=== PATIENT | male | born 1940 | race Caucasian/White ===

== ENCOUNTER 2020-06-11 12:35 | Emergency (ER) | payer MEDICARE, SELFPAY ==
--- NOTE | ~2020-06-11 | XR_ITS ---
EXAMINATION: XR chest 2V DATE: 06/11/2020 13:42 INDICATION: Posterior chest pain. TECHNIQUE: Frontal and lateral views of the chest were obtained. COMPARISON: None. FINDINGS: There is mild elevation of right hemidiaphragm. There is mild atelectasis at left lung base . No pleural effusion or pneumothorax. The heart size is normal. There are surgical clips in the abdo men. Pectus excavatum is noted. There is a mild compression fracture of mid thoracic spine. IMPRESSION: 1. Age indeterminant mild compression fracture of mid thoracic spine. 2. Mild atelectasis at left lung base. Reviewed, dictated and finalized at location A.
[2020-06-11 12:40] VITALS: BP 182/95; PULSE 79; RESP 14; TEMP 36.7; O2SAT 97
--- NOTE | 2020-06-11 12:59 | ECG_ITS ---
Measurements Intervals [place] Rate: 78 P: 73 PA: 226 QRS: -61 QRSD: 118 T: 74 QT: 373 QTc: 425 Interpretive Statements SINUS RHYTHM WITH FIRST DEGREE AV BLOCK INCOMPLETE RIGHT BUNDLE BRANCH BLOCK LEFT ANTERIOR FASCICULAR BLOCK VOLTAGE CRITERIA FOR LVH CONSIDER ANTERIOR INFARCT, AGE INDETERMINATE BASELINE WANDER- I, AVL ABNORMAL ECG Electronically Signed On 06-11-2020 13:05:22 CDT by Patrice Zamorano D.O.
[2020-06-11 13:22] LABS: Hematocrit 47.5 % (37.0-46.0); Hemoglobin 16.1 g/dL (12.4-15.3); Immature Platelet Fraction Pct 3.6 % (1.0-7.0); Mean Corpuscular HGB Conc 33.9 g/dL (32.0-36.0); Mean Corpuscular Volume 88.5 fL (78.0-102.0); Mean Platelet Volume 10.4 fl (8.7-11.0); Platelet Count Result 137 K/mm3 (150-420); Red Blood Count 5.37 M/mm3 (4.70-6.10); Red Cell Distribution Width 12.6 % (11.6-14.4)
[2020-06-11] MEDS: KETOROLAC (*BKC) 60 MG/2 ML VIAL IM (13:24)
[2020-06-11 13:46] LABS: Alanine Aminotransferase 31 U/L (16-63); Albumin Level 3.7 g/dL (3.4-5.0); Alkaline Phosphatase 58 U/L (46-116); Anion Gap 5 mmol/L (8-16); Aspartate Amino Transferase 20 U/L (15-37); Bilirubin,Total 1.3 mg/dL (0.00-1.00); Blood Urea Nitrogen 15 mg/dL (7-18); Calcium 8.9 mg/dL (8.5-10.1); Carbon Dioxide 29 mmol/L (21-32); Chloride 103 mmol/L (98-108); Estimated CRCL calculation 69 ml/min; Estimated Glomerular Filt Rate > 60; Glucose 172 mg/dL (70-99); Osmolality Calculated 288 mOsm/kg (285-295); Potassium 4.3 mmol/L (3.5-5.1); Sodium 137 mmol/L (136-145); Total Protein 7.5 g/dL (6.4-8.2); Troponin I < 0.02 ng/mL (0.00-0.056)
--- NOTE | 2020-06-11 13:53 | ED.BACK ---
HPI - Back Pain/Injury General Chief Complaint: Back Pain/Injury Stated Complaint: back pain between shoulder blades with chest pains Source: patient and family Mode of arrival: ambulatory History of Present Illness HPI Narrative: This is a 79-year-old gentleman presents with some back pain with radiation into his chest right-sided off and on back pain he rates at about 3/10 he has had this pain for the last 5 weeks has taken some ibuprofen earlier today. Currently there is no shortness of breath no nausea vomiting no abdominal pain no fever chills no diarrhea constipation no dysuria. Patient has a history of diabetes, depression, hypertension. MD elicited complaint: back pain Pertinent past history: prior back pain Onset (ago): week(s) Timing: intermittent Severity: mild Pain scale (0-10): 3 Similar Symptoms Previously: Yes Quality: dull and aching Location: thoracic spine Radiation: none Exacerbating factors: movement Relieving factors: immobilization Related Data Home Medications Medication Instructions Recorded Confirmed insulin NPH and regular human 40 unit SUBCUT BID 06/11/20 06/11/20 [Novolin 70/30 U-100 Insulin] omega 2-[id number]-fish oil [Fish Oil] 1 cap PO DAILY 06/11/20 06/11/20 sertraline [Zoloft] 150 mg PO DAILY 06/11/20 06/11/20 Allergies Allergy/AdvReac Type Severity Reaction Status Date / Time No Known Allergies Allergy Verified 06/11/20 13:19 Review of Systems Review of Systems: All systems reviewed & are unremarkable except as noted in HPI and below PMFSH Past Medical History Medical History Diabetes mellitus HTN (hypertension) Exam Const: General: no acute distress and alert Orientation/consciousness: patient oriented x3 HENMT: Head: normal to inspection Eyes: Conjunctivae: conjunctivae normal Pupils: Equal, round and reactive pupils present EOM: EOMs intact bilaterally Neck: Neck: normal visual inspection Chest: Chest palpation & inspection: normal inspection of the chest Resp: Effort & Inspection: normal respiratory effort Auscultation: clear to auscultation bilaterally Cardio: Rate: regular rate Rhythm: regular rhythm GI: Auscultation: normal bowel sounds Back/Spine/Pelvis: Back: no CVA tenderness Skin: General skin exam: normal color Rashes: no rashes Neuro: General: patient oriented x3 Extrem: General: normal to inspection Psych: Appearance: grossly normal Mental Status: mental status grossly normal Affect: normal affect Attitude: cooperative Thought content: Yes Normal thought content present Course Course Emergency Course: patient resting comfortably pain level is down to 1/10 just mild ache after he received IM Toradol advised patient follow up with primary care for of physician and explain that there was a confer compression fracture in the thoracic spine causing his chronic pain. Vital Signs Vital signs: Vital Signs Temperature 36.7 C 06/11/20 12:40 Pulse Rate 79 06/11/20 12:40 Respiratory Rate 14 06/11/20 12:40 Blood Pressure 182/95 H 06/11/20 12:40 Pulse Oximetry 97 06/11/20 12:40 Temperature 36.7 C 06/11/20 12:40 Pulse Rate 79 06/11/20 12:40 Respiratory Rate 14 06/11/20 12:40 Blood Pressure 182/95 H 06/11/20 12:40 Pulse Oximetry 97 06/11/20 12:40 MDM - Back Pain/Injury Lab Data Result diagrams: 06/11/20 13:15 06/11/20 13:15 Labs: Lab Results 06/11/20 06/11/20 06/11/20 Range/Units 13:15 13:15 13:15 WBC 5.0 (4.8-10.8) K/mm3 RBC 5.37 (4.70-6.10) M/mm3 Hgb 16.1 H (12.4-15.3) g/dL Hct 47.5 H (37.0-46.0) % MCV 88.5 (78.0-102.0) fL MCH 30.0 (27.0-31.0) pg MCHC 33.9 (32.0-36.0) g/dL RDW 12.6 (11.6-14.4) % Plt Count 137 L (150-420) K/mm3 MPV 10.4 (8.7-11.0) fl % Immature Plt Fraction 3.6 (1.0-7.0) % Sodium 137 (136-145) mmol/L Potassium 4.3 (3.5-5.1
[2020-06-11 14:09] VITALS: BP 158/82; PULSE 73; RESP 18; O2SAT 96
== END 2020-06-11 14:09 | disposition home or self-care (01) ==
PROVIDERS: Emergency Provider Emergency Medicine; PCP Family Medicine
DX: M54.6 Pain in thoracic spine (principal); M48.54XA Collapsed vertebra, not elsewhere classified, thoracic region, initial encounter for fracture; E11.9 Type 2 diabetes mellitus without complications; I10 Essential (primary) hypertension; F32.9 Major depressive disorder, single episode, unspecified
CPT/HCPCS: 36415; 71046; 80053; 84484; 85027; 85055; 93005; 96374; 99283; 99284; J1885